=== PATIENT | female | born 1945 | race Caucasian/White ===

== ENCOUNTER 2017-08-09 22:23 | Emergency (ER) | payer MEDICARE, BC ==
[2017-08-09] MEDS ORDERED: Ketorolac 30 MG/ML SDV IM ONE (22:45)
[2017-08-09] MEDS ORDERED: Acetaminophen/oxyCODONE 325-5 MG Tab PO ONE (22:46)
--- NOTE | 2017-08-09 22:46 | EDM.PDOC ---
ED HPI GENERAL MEDICAL PROBLEM - General Chief Complaint: General Stated Complaint: SEVERE NECK PAIN, CANT MOVE HEAD [id number] Time Seen by Provider: 08/09/17 23:10 Source of Information: Reports: Patient History Limitations: Reports: No Limitations - History of Present Illness INITIAL COMMENTS - FREE TEXT/NARRATIVE: left neck pain with spasm started am worse tonight. Tried flexeril without relief. Cant turn head to left. 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 at 2100 tonight. and soft collor. Left Neck Pain Score (Numeric/FACES): 10 - Related Data Allergies Allergy/AdvReac Type Severity Reaction Status Date / Time No Known Allergies Allergy Verified 08/09/17 22:41 Home Meds: Home Meds Gabapentin [Neurontin] 900 mg PO BID 08/09/17 [History] Hydrochlorothiazide 12.5 mg PO DAILY 08/09/17 [History] Lisinopril 20 mg PO DAILY 08/09/17 [History] metFORMIN [Glucophage] 500 mg PO BID 08/09/17 [History] ED ROS GENERAL - Review of Systems Review Of Systems: ROS reveals no pertinent complaints other than HPI. ED EXAM, GENERAL - Physical Exam Exam: See Below Exam Limited By: No Limitations General Appearance: Alert, Mild Distress Eye Exam: Bilateral Eye: PERRL Nose: Normal Inspection, Normal Mucosa Throat/Mouth: Normal Inspection, Normal Lips Head: Atraumatic, Normocephalic Neck: Normal Inspection Respiratory/Chest: No Respiratory Distress Cardiovascular: Normal Peripheral Pulses GI/Abdominal: Soft Back Exam: Decreased Range of Motion (neck extremly limited in rotation to left , improved mildly ), Paraspinal Tenderness (left). No: Vertebral Tenderness Extremities: Normal Inspection Neurological: Alert, Oriented, Normal Cognition Psychiatric: Normal Affect Skin Exam: Warm, Dry, Intact, Normal Color Course - Vital Signs Last Recorded V/S: Last Vital Signs Temp 99.5 F 08/10/17 00:12 Pulse 76 08/10/17 00:12 Resp 16 08/10/17 00:12 BP 154/77 H 08/10/17 00:12 Pulse Ox 97 08/10/17 00:12 - Orders/Labs/Meds Meds: Medications Discontinued Medications Generic Name Dose Route Start Last Admin Trade Name Freq PRN Reason Stop Dose Admin Ketorolac Tromethamine 30 mg 08/09/17 22:45 08/09/17 23:10 Toradol IM 08/09/17 22:46 30 mg ONETIME ONE Administration Oxycodone/Acetaminophen 1 tab 08/09/17 22:46 08/09/17 23:13 Percocet 325-5 Mg PO 08/09/17 22:47 1 tab ONETIME ONE Administration - Radiology Interpretation Free Text/Narrative:: CT C spine arthritic changes, no fractures Departure - Departure Time of Disposition: 00:20 Disposition: Home, Self-Care 01 Condition: Good Clinical Impression: Neck pain on left side, Muscle spasm - Discharge Information Instructions: Acute Torticollis, Adult Referrals: PCP,None [Primary Care Provider] - Forms: ED Department Discharge Additional Instructions: warm pack to area continue flexeril 10mg every 8 hours as needed for spasm Tylenol # 3 one every 4 hours as needed for severe pain may laternate with 400mg ibuprofen follow up in clinic if not improving
== END 2017-08-10 00:29 | disposition home or self-care (01) ==
LOC: DL.ED 22:23
DX: M62.838 Other muscle spasm (principal); M54.2 Cervicalgia; Z88.8 Allergy status to other drugs, medicaments and biological substances; Z79.84 Long term (current) use of oral hypoglycemic drugs
CPT/HCPCS: 72125; 96372; 99283; A9270; J1885